=== PATIENT | female | born 1995 | race African-American/Black ===

== ENCOUNTER 2019-09-25 03:44 | Emergency (ER) | payer OTHER, MEDICAID ==
[~2019-09-25] VITALS: Ht 162.6 cm; Wt 57.0 kg
[2019-09-25] MEDS ORDERED: MORPHINE SULFATE 4 MG/ML CPJ (NOT FOR IM USE) IV STA ×2 (04:26→11:48)
[2019-09-25] MEDS ORDERED: ONDANSETRON HCL 4MG/2ML INJ IV STA ×2 (04:26→11:48)
[2019-09-25] MEDS ORDERED: SODIUM CHLORIDE 0.9% 1,000 ML IV ONE (04:26)
[2019-09-25] MEDS ORDERED: CLINDAMYCIN 600 MG in DEXTROSE 5% WATER 50 ML IV ONE (04:30)
[2019-09-25] MEDS ORDERED: CLINDAMYCIN 600MG PREMIX 50 ML IV ONE (04:45)
[2019-09-25 05:08] LABS: BASOPHILS % 1.2 % (0.0-2.0); EOSINOPHILS % 0.5 % (0.0-5.0); HEMATOCRIT. 42.6 % (36.0-48.0); HEMOGLOBIN. 14.6 g/dL (12.0-16.0); LYMPHOCYTES % 12.8 % (20.0-50.0); MEAN CORPUSCULAR VOLUME 96.4 fL (81.0-99.0); MEAN PLATELET VOLUME 10.1 fl (7.4-10.4); MONOCYTES % 5.9 % (2.0-8.0); NEUTROPHILS % 79.6 % (40.0-76.0); PLATELET 242 x1000/uL (130-400); RED BLOOD CELL COUNT 4.42 mill/uL (4.2-5.4)
[2019-09-25 05:14] LABS: CHLORIDE 112 mEq/L (98-107)
[2019-09-25] MEDS ORDERED: IOHEXOL-300 100 ML BOTTLE ONE (05:52)
[2019-09-25] MEDS ORDERED: KETOROLAC 30MG/ML VIAL IV STA (06:57)
[2019-09-25] MEDS ORDERED: CEFTRIAXONE 1 G PREMIX 50 ML IV ONE (07:00)
[2019-09-25 12:22] VITALS: BP 103/57
== END 2019-09-25 13:14 | disposition home or self-care (01) ==
LOC: ER 03:44
DX: K04.7 Periapical abscess without sinus (principal)
CPT/HCPCS: 36415; 70487; 80048; 81025; 85025; 96365; 96367; 96375; 96376; 99285; J0696; J1885; J2270; J2405; J3490; J7030; Q9967; J7060

== ENCOUNTER 2023-04-25 20:01 | Emergency (ER) | payer MEDICAID, OTHER ==
[~2023-04-25] VITALS: Ht 162.6 cm; Wt 60.0 kg
[2023-04-25 20:17] VITALS: O2SAT 98
[2023-04-25 21:33] LABS: HEMATOCRIT. 38.4 % (36.0-48.0); MEAN CORPUSCULAR HEMOGLOBIN 32.2 pg (28.0-32.0); MEAN CORPUSCULAR HGB CONC 33.8 g/dL (31.0-37.0); MEAN CORPUSCULAR VOLUME 95.5 fL (81.0-99.0); MEAN PLATELET VOLUME 9.2 fl (7.4-10.4); PLATELET 198 x1000/uL (130-400); RED BLOOD CELL COUNT 4.02 mill/uL (4.2-5.4); RED CELL DISTRIBUTION WIDTH 13.1 % (11.6-14.6); WHITE BLOOD COUNT 7.8 x1000/uL (4.5-11.0)
[2023-04-25 21:35] LABS: DIFFERENTIAL COMMENT 1
[2023-04-25 21:43] VITALS: BP 96/62; PULSE 92; RESP 20
[2023-04-25] MEDS: ONDANSETRON 4MG ODT PO NR ×2 (21:46→23:18)
[2023-04-25] MEDS: ACETAMINOPHEN 325MG TABLET PO NR ×2 (21:46→23:17)
[2023-04-25 21:50] LABS: CLARITY URINE CLOUDY (CLEAR); COLOR URINE YELLOW (YELLOW); GLUCOSE URINE NEGATIVE (NEGATIVE); KETONES URINE 3+ (NEGATIVE); LEUKOCYTE ESTERASE URINE NEGATIVE (NEGATIVE); NITRITE URINE POSITIVE (NEGATIVE); OCCULT BLOOD URINE NEGATIVE (NEGATIVE); PROTEIN URINE TRACE (NEGATIVE); UROBILINOGEN URINE 0.2 E.U./dL (0.2-1.0)
[2023-04-25 21:52] LABS: BACTERIA URINE 2+; RBC URINE 0-2 /hpf (0-2); SQUAMOUS EPITHELIAL CELL URINE 2+ /lpf (RARE/1+); YEAST URINE NONE SEEN
[2023-04-25 21:55] LABS: CHLORIDE 107 mEq/L (98-107); INDEX HEMOLYSI 1 (1-3); INDEX ICTERIC 1 (1-4); INDEX LIPEMIC 1 (1-3); POTASSIUM 3.6 mEq/L (3.5-5.1); SODIUM 138 mEq/L (136-145)
[2023-04-25 22:02] LABS: ALANINE AMINOTRANSFERASE 20 IU/L (13-61); ALBUMIN 3.6 g/dL (3.4-5.0); ASPARTATE AMINOTRANSFERASE 16 IU/L (15-37); BILIRUBIN TOTAL 0.5 mg/dL (0.1-1.0); CALCIUM 8.6 mg/dL (8.5-10.1); CARBON DIOXIDE 22 mEq/L (21-32); CREATININE 0.7 mg/dL (0.6-1.3); GLUCOSE 74 mg/dL (70-105); PROTEIN TOTAL 7.4 g/dL (6.0-8.3); UREA NITROGEN BLOOD 14 mg/dL (7-21)
[2023-04-25 22:06] LABS: PLATELET ESTIMATE NORMAL
[2023-04-25] MEDS ORDERED: D-ME473S50 PO (22:42)
[2023-04-25] MEDS ORDERED: NAPR-681 MT (22:42)
[2023-04-25] MEDS ORDERED: CEPH500C2 MT (22:42)
[2023-04-25] MEDS ORDERED: CEFTRIAXONE SODIUM 1 G/VIAL IM ONE (23:00)
[2023-04-25] MEDS ORDERED: LIDOCAINE HCL 1% 20ML VIAL (Pyxis) INJ INFIL ONE (23:00)
[2023-04-25 23:17] VITALS: TEMP 98.7
== END 2023-04-25 23:22 | disposition home or self-care (01) ==
LOC: ER 20:01
DX: N39.0 Urinary tract infection, site not specified (principal); J06.9 Acute upper respiratory infection, unspecified; J45.909 Unspecified asthma, uncomplicated; Z20.822 Contact with and (suspected) exposure to COVID-19
CPT/HCPCS: 80053; 81003; 81025; 85025; 87086; 87804 ×2; 36415; 71045; 96372; 99284; 87426; Q0162; J0696; J3490; C9803; Z7610 ×4